=== PATIENT | male | born 1940 | race Caucasian/White ===

== ENCOUNTER 2016-04-16 11:05 | Inpatient (IN) | payer MEDICARE ==
[2016-04-16] MEDS ORDERED: NS 1,000 ML IV ONE (11:31)
[2016-04-16 11:47] LABS: MPV 9.7 fL (7.4-10.4)
[2016-04-16 11:59] LABS: BLOOD UREA NITROGEN 94 MG/DL (9-20); CALCIUM 9.3 MG/DL (8.4-10.2); CALCULATED OSMOLALITY 305 MOs/Kg (270-290); CHLORIDE 110 mEq/L (98-107); GLUCOSE 248 MG/DL (70-99); SODIUM LEVEL 139 mEq/L (137-146); TOTAL PROTEIN 5.9 G/DL (6.3-8.2)
--- NOTE | 2016-04-16 12:01 | EDPRACDOC ---
- General Information Chief Complaint: Generalized Weakness Stated Complaint: NOSE BLEED/ DIZZY Time Seen by Provider: 04/16/16 11:25 Information Source: Patient Mode Of Arrival: Car Home Medications: Home Medications Pravastatin Sodium 80 mg PO HS 04/29/13 Alprazolam 0.5 mg PO TID 05/16/15 Glipizide 5 mg PO BID 05/16/15 Insulin Regular, Human [Humulin R] 12 unit SQ BID 05/16/15 Lisinopril 40 mg PO HS 05/16/15 MetFORMIN (Immediate Release) [GLUCOPHAGE Immed Release] 1,000 mg PO BID Sertraline HCl [Zoloft] 100 mg PO DAILY 04/16/16 Allergies/Adverse Reactions: Allergies Allergy/AdvReac Type Severity Reaction Status Date / Time No Known Allergies Allergy Verified 05/16/15 16:35 - History of Present Illness Onset: 2 days Exact Onset of Symptoms: Unknown HPI: PT HAS BEEN SOB FOR THE PAST FEW DAYS. PT SAID THAT HE HAS HAD NOSEBLEEDS AND A BRUISING. PT SAID THAT HE HAS BEEN FEELING THAT HE'S GOING TO PASS OUT. HE ALSO REPORTS BLACK STOOLS. PT SAID THAT HE HAS A HX OF LOW PLT, BUT THEY'VE BEEN STABLE RECENTLY. HE IS FOLLOWED BY DR. GERARDO. Symptoms Started: Reports: Gradually Symptoms Description: Constant Weakness: Bilateral: Generalized Symptoms: Reports: Near Syncope, Weak Symptom Severity: Reports: Bedridden Associated signs and symptoms:: Reports: None ED Past Medical History - Patient Medical History Cardiac History: Reports: Hypertension, Hypercholesterolemia Psychological History: Reports: Anxiety Systemic History: Reports: Diabetes. Denies: Cancer Additional Past Medical History: CHRONIC ITP Surgical History: Reports: Hernia Surgery - Family Medical History Reports: Diabetes (GRANDFATHER), Cancer (FATHER), Cardiac Disorders (MOM). Denies: Hypertension, Stroke - Social Medical History Smoking Status: Never smoker ETOH: None Substance Abuse: None Lives In: Home EDM Review of Systems - Review of Systems ROS Negative Except as Marked: Yes All systems reviewed and were negative except as marked Constitutional: Weakness Nose: Bleeding Gastrointestinal: Melena Hematologic: Easy Bruising, Easy Bleeding, Other (LOW PLT) - Physical Exam Constitutional: Alert (Awake), Distress Oriented to: Time, Person, Place Last recorded Vital Signs: Last Vital Signs Temp 97.7 F 04/16/16 11:19 Pulse 90 04/16/16 11:51 Resp 18 04/16/16 11:51 BP 89/53 L 04/16/16 11:51 Pulse Ox 100 04/16/16 11:51 Oxygen Pulse Oxygen Saturation 100 O2 Device Room Air Oxygen Flow Rate Fraction of Inspired Oxygen ( FIO2) - HEENT Head: Normal ( normocephalic) Eye Exam: Normal (PERRL, EOMI, Sclera white) Oropharynx: Other (INTRAORAL PETECHIAE) ENT EAC: Normal TMJ: Normal Nose: No Symptoms Reported (septum midline) Neck: Normal (FROM, trachea at midline) - Respiratory/Cardiovascular Respiratory: Normal - CTA (BBS clear to auscultation without adventitious sounds ) Cardiovascular: Tachycardia - GI Auscultation: Normal (NABS) Palpation: Normal (Soft,No rebound or guarding, non distended) Tenderness: Non tender Osman's Sign: Negative - Musculoskeletal Back: Normal Extremities: Other (ECCHYMOSIS AND PETECHIAE) - Integumentary Skin: Pale Lymphatics: Normal - Neurologic Memory Impaired: Normal Motor Function: Normal (Normal tone, Pulses 2+ No cyanosis or edema, FROM) Cranial Nerve: Normal (CN II-X11 intact sensation, strength 5/5) Cerebellar: Normal Mood Description: Normal Thought: Coherent Perception: Normal - Results 04/16/16 11:35 04/16/16 11:35 WBC 13.2 xk/uL (3.8-10.8) H 04/16/16 11:35 RBC 2.31 xM/uL (4.70-6.10) L 04/16/16 11:35 Hgb 6.6 g/dL (14.0-18.0) L* 04/16/16 11:35 Hct 19.9 % (42-52) L 04/16/16 11:35 MCV 86 fL (80-94) 04/16/16 11:35 MCH 28.7 pg (27-32) 04/16/16 11:35 MCHC 33.3 g/dl (33-36) 04/16/16 11:35 RDW 15.4 % (11.5-14.5) H 04/16/16 11:35 Plt Count < 3 xk/uL (130-400) L* 04/16/16 11:35 MPV 9.7 fL (7.4-10.4) 04/16/16 11:35 Sodium 139 mEq/L (137-146) 04/16/16 11:35 Potassium 5.2 mEq/L (3.5-5.1) H 04/16/16 11:35 Chloride 110 mEq/L (98-107) H 04/16/16 11:35 Carbon Dioxide 11 mMOL/L (22-33) L 04/16/16 11:35 Anion Gap 23 mEq/L (8-16) H 04/16/16 11:35 BUN 94 MG/DL (9-20) H 04/16/16 11:35 Creatinine 2.00 MG/DL (0.66-1.25) H 04/16/16 11:35 Estimated GFR (MDRD) 33 mL/min (>=60) L 04/16/16 11:35 Glucose 248 MG/DL (70-99) H 04/16/16 11:35 Calculated Osmolality 305 MOs/Kg (270-290) H 04/16/16 11:35 Calcium 9.3 MG/DL (8.4-10.2) 04/16/16 11:35 Corrected Calcium 10.0 MG/DL (8.4-10.2) 04/16/16 11:35 Total Bilirubin 0.5 MG/DL (0.2-1.3) 04/16/16 11:35 AST 16 IU/L (17-59) L 04/16/16 11:35 ALT 31 IU/L (21-72) 04/16/16 11:35 Alkaline Phosphatase 43 IU/L (50-160) L 04/16/16 11:35 Total Protein 5.9 G/DL (6.3-8.2) L 04/16/16 11:35 Albumin 3.3 G/DL (3.5-5.0) L 04/16/16 11:35 Crossmatch See Detail 04/16/16 11:35 Lab Results 04/16/16 04/16/16 04/16/16 11:35 11:35 11:35 WBC 13.2 H RBC 2.31 L Hgb 6.6 L* Hct 19.9 L MCV 86 MCH 28.7 MCHC 33.3 RDW 15.4 H Plt Count < 3 L* MPV 9.7 Sodium 139 Potassium 5.2 H Chloride 110 H Carbon Dioxide 11 L Anion Gap 23 H BUN 94 H Creatinine 2.00 H Estimated GFR (MDRD) 33 L Glucose 248 H Calculated Osmolality 305 H Calcium 9.3 Corrected Calcium 10.0 Total Bilirubin 0.5 AST 16 L ALT 31 Alkaline Phosphatase 43 L Total Protein 5.9 L Albumin 3.3 L Crossmatch See Detail - EKG EKG #1 EKG Time: 11:34 -: Yes EKG interpreted by me Rate: bpm: 106 [place]: Normal Rhythm: ST Block: RBBB Hypertrophy: None ST: Normal Comparison: 06/03/13 - Diagnostic Imaging Chest Image interpreted by: Radiologist There is no active cardiopulmonary disease. - Additional Information PT D/W DR. GERARDO REGARDING THE CBC ABN. HE REC IVIG 1 G/KG FOR 2 DAYS. 40 MG DECADRON IV DAILY FOR 4 DAYS. 2 UNITS OF PLT. ED Critical Care Note - Critical Care Note Total Time (mins): 30 - Departure Yes I personally saw and evaluated the patient. Disposition: Admit IP To This Hospital Condition: Serious Final Diagnosis: Acute upper GI bleed, Acute post-hemorrhagic anemia, Severe thrombocytopenia, ARF (acute renal failure), Dehydration, Hyperglycemia, Chronic ITP (idiopathic thrombocytopenia) Instructions: Weakness (General), Renal Failure Diet (GEN) Education/Counseling Given To: Patient, Family Member Education/Counseling Given Regarding: Diagnosis, Treatment Decision to Admit Time: 12:47 Decision to admit date: 04/16/16 Decision to admit: from ED - Physician Consulted Hospitalist Provider Called: Yvon Antonio
[2016-04-16] MEDS ORDERED: SODIUM CHLORIDE 0.9% 3 ML FLUSH FLUSH PRN (12:03)
[2016-04-16 12:04] LABS: PARTIAL THROMB. TIME 18.8 SEC (22-35); PT-INR 1.1
[2016-04-16] MEDS ORDERED: DEXAMETHASONE PF 10 MG/1 ML VIAL IV ONE (12:20)
[2016-04-16 12:27] LABS: SEG NEUTROPHIL 65 % (45-76); TOTAL CELL COUNT 100
--- NOTE | 2016-04-16 12:27 | DIRPT ---
CLINICAL DATA: Nosebleed, dizziness, multiple falls; history of hypertension and thrombus cytopenia. EXAM: PORTABLE CHEST 1 VIEW COMPARISON: None in PACs FINDINGS: The lungs are adequately inflated and clear. The heart and pulmonary vascularity are normal. The mediastinum is normal in width. The trachea is midline. There is no pleural effusion or pneumothorax. The observed portions of the bony thorax are unremarkable. IMPRESSION: There is no active cardiopulmonary disease. Electronically Signed By: Drew Martinez M.D. On: 04/16/2016 12:25
[2016-04-16] MEDS ORDERED: PANTOPRAZOLE 40 MG VIAL IV ONE (12:45)
[2016-04-16] MEDS ORDERED: DEXAMETHASONE PF 10 MG/1 ML VIAL ONE (12:49)
[2016-04-16] MEDS ORDERED: IMMUNE GLOBULIN GAMMA IV SCH (13:00)
[2016-04-16] MEDS ORDERED: DEXTROSE 25 GM/50 ML PFS IV PRN ×2 (13:47→19:31)
[2016-04-16] MEDS ORDERED: PROMETHAZINE 25 MG/ML VIAL IV PRN (13:47)
[2016-04-16] MEDS ORDERED: GLUCAGON 1 MG VIAL SQ PRN ×2 (13:47→19:31)
[2016-04-16] MEDS ORDERED: GUAIFENESIN 200 MG/10 ML UDC PO PRN (13:47)
[2016-04-16] MEDS ORDERED: ONDANSETRON HCL 4 MG/2 ML VIAL IV PRN (13:47)
[2016-04-16] MEDS ORDERED: Docusate Sodium 100 MG CAP PO PRN (13:47)
[2016-04-16] MEDS ORDERED: ACETAMINOPHEN 325 MG/TAB TABLET PO PRN (13:47)
[2016-04-16] MEDS ORDERED: MAGNESIUM HYDROXIDE 30 ML BOTTLE PO PRN (13:47)
[2016-04-16] MEDS ORDERED: GLUCOSE (ORAL GEL) 15 GM TUBE PO PRN ×2 (13:47→19:31)
[2016-04-16] MEDS ORDERED: BENZONATATE 100 MG PERLES PO PRN (13:47)
--- NOTE | 2016-04-16 13:47 | HISTPHYS ---
- Chief Complaint weakness, gi bleeding, severe thrombocytopenia - History of Present Illness Mr. Leroy is a 75-year-old white male with a history of ITP who presents to the emergency room with complaint of severe weakness, GI bleeding, and near- syncope. In the emergency room he was found to be severely thrombocytopenic with a platelet count of less than 3. He was also severely anemic with a hemoglobin of 6.8. He complains of dizziness and lightheadedness. I discussed his case with Dr. Brown with Hematology-Oncology. We have gone ahead and started him on IVIG and high-dose IV Decadron. We will transfuse him packed red blood cells and platelets. He will be admitted to the intensive care unit for further evaluation and management. - Medical History Cardiac History: Reports: Hypertension, Hypercholesterolemia Respiratory History: Reports: No Significant History GI/ History: Reports: No Significant History Systemic History: Reports: Diabetes, Other (ITP). Denies: Cancer Neurological History: Reports: No Significant History Psychological History: Reports: Anxiety - Surgical History Reports: Hernia Surgery - Medictions/Allergies Allergies No Known Allergies Allergy (Verified 05/16/15 16:35) Current Medication List: Reviewed Home Medications Pravastatin Sodium 80 mg PO HS 04/29/13 Alprazolam 0.5 mg PO TID 05/16/15 Glipizide 5 mg PO BID 05/16/15 Insulin Regular, Human [Humulin R] 12 unit SQ BID 05/16/15 Lisinopril 40 mg PO HS 05/16/15 MetFORMIN (Immediate Release) [GLUCOPHAGE Immed Release] 1,000 mg PO BID Sertraline HCl [Zoloft] 100 mg PO DAILY 04/16/16 - Family History Reports: Diabetes (GRANDFATHER), Cancer (FATHER), Cardiac Disorders (MOM). Denies: Hypertension, Stroke - Social History Lives: With Family Smoking Status: Never smoker Social History: Denies: Alcohol Use - Review of Systems Yes All systems reviewed and were negative except as marked Constitutional: Fatigue, Loss of Appetite, Weakness. negative: Chills, Fever - Eyes No Symptoms Reported. negative: Blurred Vision, Double Vision, Pain, Photophobia - Ears No Symptoms Reported. negative: Drainage, Hearing Loss, Pain - Nose Bleeding. negative: Abrasion - Mouth Mouth: No Symptoms Reported. negative: Pain, Drooling, Denture - Throat/Neck No Symptoms Reported. negative: Pain, Masses, Hoarseness, Snoring - Respiratory Shortness of Breath. negative: Cough, Wheezing, Sputum - Cardiovascular negative: Chest Pain, Orthopnea, Palpitations - Gastrointestinal Gastrointestinal: Nausea, Diarrhea, Hematochezia - Genitourinary Genitourinary: No Symptoms Reported. negative: Bleeding, Dysuria, Discharge, Frequency - Neurological Dizziness, Weakness. negative: Headache, Seizure, Speech Difficulty - Musculoskeletal Musculoskeletal:: No Symptoms Reported. negative: Stiffness, Gout, Weakness - Integumentary Bruising - Allergic/Immunologic No Symptoms Reported - Hematologic Easy Bruising, Easy Bleeding, Anemia. negative: Past Transfusion Reaction - Endocrine No Symptoms Reported. negative: Weight Gain, Weight Loss, Excessive Thirst, Excessive Sweating, Heat Intolerance, Cold Intolerance - Psychiatric Anxiety - Physical Exam Constitutional: Alert (Awake), Distress. negative: Well appearing (Acutely ill- appearing) Oriented to: Time, Person, Place Exam: Last Vital Signs Temp 98.1 F 04/16/16 13:38 Pulse 88 04/16/16 13:38 Resp 20 04/16/16 13:38 BP 101/56 L 04/16/16 13:38 Pulse Ox 100 04/16/16 13:38 Intake & Output 04/15/16 04/16/16 04/16/16 23:59 07:59 15:59 Intake Total 0 Balance 0 Patient's weight 90.718 kg - HEENT Head: Normal ( normocephalic) Eye: Normal (PERRL, EOMI, Sclera white) Oropharynx: Other (INTRAORAL PETECHIAE) ENT EAC: Normal TMJ: Normal Nose: No Symptoms Reported (septum midline) - Respiratory/Cardiovascular Respiratory: Normal - CTA (BBS clear to auscultation without adventitious sounds ). negative: Rales, Rhonchi, Wheezes Cardiovascular: Tachycardia - GI Auscultation: Normal (NABS) Palpation: Normal (Soft,No rebound or guarding, non distended) Tenderness: Non tender Rectal Exam: Heme positive stool - Musculoskeletal Back: Ecchymosis Extremities: Other (ECCHYMOSIS AND PETECHIAE). negative: Calf Tenderness, Edema , Pedal Edema - Integumentary Skin: Warm, Dry, Pale, Petechiae, Other (Multiple ecchymoses) Lymphatics: Normal. negative: Adenopathy - Neurologic Memory Impaired: Normal Motor Function: Normal Cranial Nerve: Normal Cerebellar: Normal Mood Description: Normal Thought: Coherent Perception: Normal - Focused CV Perfusion Exam Vital Signs: Last Vital Signs Temp 98.1 F 04/16/16 13:38 Pulse 88 04/16/16 13:38 Resp 20 04/16/16 13:38 BP 101/56 L 04/16/16 13:38 Pulse Ox 100 04/16/16 13:38 - Lab Results Laboratory Results - last 24 hr 04/16/16 04/16/16 04/16/16 11:35 11:35 11:35 WBC 13.2 H RBC 2.31 L Hgb 6.6 L* Hct 19.9 L MCV 86 MCH 28.7 MCHC 33.3 RDW 15.4 H Plt Count < 3 L* MPV 9.7 Neut % (Auto) Cancelled Lymph % (Auto) Cancelled [place] % (Auto) Cancelled Eos % (Auto) Cancelled Baso % (Auto) Cancelled Absolute Neuts (auto) Cancelled Absolute Lymphs (auto) Cancelled Seg Neuts % (Manual) 65 Band Neutrophils % 2 Lymphocytes % (Manual) 28 Monocytes % (Manual) 3 Eosinophils % (Manual) 2 Absolute Neutrophils 8.84 H Absolute Lymphocytes 3.70 Vacuolated Neuts 1+ Atypical Lymphocytes Mod amt Platelet Estimate Dec RBC Morphology 1+ sphero PT INR APTT Sodium 139 Potassium 5.2 H Chloride 110 H Carbon Dioxide 11 L Anion Gap 23 H BUN 94 H Creatinine 2.00 H Estimated GFR (MDRD) 33 L Glucose 248 H Calculated Osmolality 305 H Calcium 9.3 Corrected Calcium 10.0 Total Bilirubin 0.5 AST 16 L ALT 31 Alkaline Phosphatase 43 L Troponin I < 0.01 Total Protein 5.9 L Albumin 3.3 L Blood Type A NEGATIVE Antibody Screen Negative Crossmatch See Detail 04/16/16 11:35 WBC RBC Hgb Hct MCV MCH MCHC RDW Plt Count MPV Neut % (Auto) Lymph % (Auto) [place] % (Auto) Eos % (Auto) Baso % (Auto) Absolute Neuts (auto) Absolute Lymphs (auto) Seg Neuts % (Manual) Band Neutrophils % Lymphocytes % (Manual) Monocytes % (Manual) Eosinophils % (Manual) Absolute Neutrophils Absolute Lymphocytes Vacuolated Neuts Atypical Lymphocytes Platelet Estimate RBC Morphology PT 10.8 INR 1.1 APTT 18.8 L Sodium Potassium Chloride Carbon Dioxide Anion Gap BUN Creatinine Estimated GFR (MDRD) Glucose Calculated Osmolality Calcium Corrected Calcium Total Bilirubin AST ALT Alkaline Phosphatase Troponin I Total Protein Albumin Blood Type Antibody Screen Crossmatch - Assessment (1) Acute post-hemorrhagic anemia D62 - ACUTE POSTHEMORRHAGIC ANEMIA Acute Present on Admission: Yes Severe. Admit ICU. This appears to be due to GI bleeding from severe thrombocytopenia and ITP. IV steroids, IVIG, transfuse platelets and packed red blood cells. Also place on IV Protonix. Continue to monitor H&H and transfuse as needed. (2) Chronic ITP (idiopathic thrombocytopenia) D69.3 - IMMUNE THROMBOCYTOPENIC PURPURA Acute Present on Admission: Yes Acutely worse with severe thrombocytopenia and a platelet count of less than 3. Starting IVIG, IV steroids, and transfusing platelets and packed red blood cells. Dr. Brown to see in consultation (3) ARF (acute renal failure) N17.9 - ACUTE KIDNEY FAILURE, UNSPECIFIED Acute Present on Admission: Yes Qualifiers: Acute renal failure type: unspecified Qualified Code(s): N17.9 - Acute kidney failure, unspecified IV fluids, transfusion, monitor closely and dose adjust medications. (4) Severe thrombocytopenia D69.6 - THROMBOCYTOPENIA, UNSPECIFIED Acute Present on Admission: Yes As above under ITP (5) GI bleed K92.2 - GASTROINTESTINAL HEMORRHAGE, UNSPECIFIED Acute Present on Admission: Yes Qualifiers: GI bleed type/associated pathology: anorectal hemorrhage Qualified Code(s) : K62.5 - Hemorrhage of anus and rectum Due to severe thrombocytopenia. Transfuse. Correct ITP and monitor (6) Dehydration E86.0 - DEHYDRATION Acute Present on Admission: Yes IV fluids and monitor (7) Hyperglycemia R73.9 - HYPERGLYCEMIA, UNSPECIFIED Acute Present on Admission: Yes Accu-Cheks and sliding scale insulin Case Care Discussed with: Patient, Consultants, Family, Nursing Staff, Resource Management, Cut Off Sawyer Total Time: 1 hour 30 minutes Critical Care: Yes
[2016-04-16] MEDS ORDERED: Vaccine Screening Complete SCH (16:00)
[2016-04-16] MEDS ORDERED: IMMUNE GLOBULIN GAMMA IV ONE (17:00)
[2016-04-16] MEDS: ALPRAZOLAM 0.5 MG TAB PO SCH ×2 (17:02→21:03)
[2016-04-16] MEDS: REGULAR INSULIN 100 UNITS/ML - 3 ML VIAL SQ SCH ×4 (17:03→21:05)
[2016-04-16] MEDS: NS 1,000 ML IV SCH (17:03)
[2016-04-16] MEDS: SODIUM CHLORIDE 0.9% 3 ML FLUSH FLUSH SCH (17:15)
[2016-04-16] MEDS ORDERED: REGULAR INSULIN 100 UNITS/ML - 3 ML VIAL IV ONE (19:33)
[2016-04-16] MEDS ORDERED: REGULAR INSULIN 100 UNITS/ML - 3 ML VIAL SQ ONE (20:10)
[2016-04-16 20:37] LABS: LEUKOCYTES/URINE NEG (NEGATIVE); NITRITE/URINE NEG (NEGATIVE); RBC/URINE 20-30 (0-2); URINE OCCULT BLOOD 3+ (NEG/TRACE)
[2016-04-16] MEDS: CHLORHEXIDINE (HIBICLENS) 4 OZ BOTTLE TOP SCH (21:57)
[2016-04-16] MEDS: ZOLPIDEM TARTRATE 5 MG TAB PO PRN (22:44)
[2016-04-17] MEDS: NS 1,000 ML IV SCH ×4 (00:45→17:10)
[2016-04-17 06:05] LABS: AUTOMATED BASOPHIL 0.3 % (0-2)
[2016-04-17 06:06] LABS: AUTOMATED LYMPH 18.5 % (17-44); AUTOMATED MONOCYTE 6.4 % (3-10); AUTOMATED NEUTROPHIL 74.8 % (45-76)
[2016-04-17] MEDS: SODIUM CHLORIDE 0.9% 3 ML FLUSH FLUSH SCH ×2 (06:20→17:14)
[2016-04-17] MEDS: REGULAR INSULIN 100 UNITS/ML - 3 ML VIAL SQ SCH ×6 (06:20→21:11)
[2016-04-17] MEDS: ALPRAZOLAM 0.5 MG TAB PO SCH ×3 (06:20→20:44)
[2016-04-17 06:45] LABS: BLOOD UREA NITROGEN 75 MG/DL (9-20); CALCIUM 8.9 MG/DL (8.4-10.2); CALCULATED OSMOLALITY 298 MOs/Kg (270-290); CHLORIDE 117 mEq/L (98-107); GLUCOSE 123 MG/DL (70-99); SODIUM LEVEL 143 mEq/L (137-146)
[2016-04-17] MEDS: SERTRALINE HCL 100 MG TAB PO SCH (07:50)
--- NOTE | 2016-04-17 08:36 | GENMEDPROG ---
Chief Complaint: No improvement in platelets or hemoglobin despite transfusions. Still feels weak, dizzy and lightheaded. Says rectal bleeding has improved. Denies pain currently. Notes Reviewed: Yes Events from last night noted and discussed with Clinical Staff Current Medication List: Reviewed Currently: Reports: SOB. Denies: Cough, Wheezing, MORRIS, Nausea and Vomiting, Chest Pain DVT Prophylaxis: No (Patient has severe thrombocytopenia is actively bleeding with significant peripheral ecchymoses. Do not feel he is safe for SCDs or chemo prophylaxis) - Physical Examination Vital Signs and I&O: Last Vital Signs Temp 98.4 F 04/17/16 08:04 Pulse 91 04/17/16 08:04 Resp 18 04/17/16 08:04 BP 110/63 04/17/16 08:04 Pulse Ox 100 04/17/16 08:04 Oxygen Pulse Oxygen Saturation 100 O2 Device Room Air Oxygen Flow Rate Fraction of Inspired Oxygen ( FIO2) Intake & Output 04/14/16 04/15/16 04/16/16 04/17/16 23:59 23:59 23:59 23:59 Intake Total 3654 2123 Output Total 1650 500 Balance 2004 1623 Patient's weight 88.621 kg General: Alert, Oriented x3, Cooperative, Mild distress. negative: Well appearing (Acutely ill-appearing) HEENT: Normal, PERRLA, EOMI Neck: Non-tender, Full range of motion, Normal Trachea alignment, Normal inspection. negative: JVD Lymphatics: Normal. negative: Adenopathy Respiratory: Normal - CTA (BBS clear to auscultation without adventitious sounds ). negative: Rales, Rhonchi, Wheezes Cardiovascular: Regular rate and rhythm, No Gallops,Rubs/Murmurs GI: Normal bowel sounds, Soft, Non tender, No hepatospenomegaly Extremities/Musculoskeletal: Normal pulses. negative: Tenderness, Swelling, Edema Skin: Ecchymosis Present Neurological: Normal speech, Strength at 5/5 X4 ext, Normal tone, Cranial nerves 3-12 NL Psych/Mental Status: Appropriate, Normal Affect, Cooperative, Anxious Lab/DI/Studies Reviewed: Laboratory Results - last 24 hr 04/16/16 04/16/16 04/16/16 11:35 11:35 11:35 WBC 13.2 H RBC 2.31 L Hgb 6.6 L* Hct 19.9 L MCV 86 MCH 28.7 MCHC 33.3 RDW 15.4 H Plt Count < 3 L* MPV 9.7 Neut % (Auto) Cancelled Lymph % (Auto) Cancelled [place] % (Auto) Cancelled Eos % (Auto) Cancelled Baso % (Auto) Cancelled Absolute Neuts (auto) Cancelled Absolute Lymphs (auto) Cancelled Seg Neuts % (Manual) 65 Band Neutrophils % 2 Lymphocytes % (Manual) 28 Monocytes % (Manual) 3 Eosinophils % (Manual) 2 Absolute Neutrophils 8.84 H Absolute Lymphocytes 3.70 Vacuolated Neuts 1+ Atypical Lymphocytes Mod amt Platelet Estimate Dec RBC Morphology 1+ sphero PT INR APTT Sodium 139 Potassium 5.2 H Chloride 110 H Carbon Dioxide 11 L Anion Gap 23 H BUN 94 H Creatinine 2.00 H Estimated GFR (MDRD) 33 L Glucose 248 H POC Capillary Glucose Calculated Osmolality 305 H Calcium 9.3 Corrected Calcium 10.0 Total Bilirubin 0.5 AST 16 L ALT 31 Alkaline Phosphatase 43 L Troponin I < 0.01 Total Protein 5.9 L Albumin 3.3 L Urine Color Urine Clarity Urine pH Ur Specific [place] Urine Protein Urine Glucose (UA) Urine Ketones Urine Occult Blood Urine Nitrite Urine Bilirubin Urine Urobilinogen Ur Leukocyte Esterase Urine RBC Urine WBC Ur Epithelial Cells Urine Bacteria Hyaline Casts Urine Mucus Blood Type A NEGATIVE Antibody Screen Negative Crossmatch See Detail 04/16/16 04/16/16 04/16/16 11:35 14:31 16:55 WBC RBC Hgb Hct MCV MCH MCHC RDW Plt Count MPV Neut % (Auto) Lymph % (Auto) [place] % (Auto) Eos % (Auto) Baso % (Auto) Absolute Neuts (auto) Absolute Lymphs (auto) Seg Neuts % (Manual) Band Neutrophils % Lymphocytes % (Manual) Monocytes % (Manual) Eosinophils % (Manual) Absolute Neutrophils Absolute Lymphocytes Vacuolated Neuts Atypical Lymphocytes Platelet Estimate RBC Morphology PT 10.8 INR 1.1 APTT 18.8 L Sodium Potassium Chloride Carbon Dioxide Anion Gap BUN Creatinine Estimated GFR (MDRD) Glucose POC Capillary Glucose 405 H* Calculated Osmolality Calcium Corrected Calcium Total Bilirubin AST ALT Alkaline Phosphatase Troponin I < 0.01 Total Protein Albumin Urine Color Urine Clarity Urine pH Ur Specific [place] Urine Protein Urine Glucose (UA) Urine Ketones Urine Occult Blood Urine Nitrite Urine Bilirubin Urine Urobilinogen Ur Leukocyte Esterase Urine RBC Urine WBC Ur Epithelial Cells Urine Bacteria Hyaline Casts Urine Mucus Blood Type Antibody Screen Crossmatch 04/16/16 04/16/16 04/16/16 17:50 19:19 20:22 WBC RBC Hgb Hct MCV MCH MCHC RDW Plt Count MPV Neut % (Auto) Lymph % (Auto) [place] % (Auto) Eos % (Auto) Baso % (Auto) Absolute Neuts (auto) Absolute Lymphs (auto) Seg Neuts % (Manual) Band Neutrophils % Lymphocytes % (Manual) Monocytes % (Manual) Eosinophils % (Manual) Absolute Neutrophils Absolute Lymphocytes Vacuolated Neuts Atypical Lymphocytes Platelet Estimate RBC Morphology PT INR APTT Sodium Potassium Chloride Carbon Dioxide Anion Gap BUN Creatinine Estimated GFR (MDRD) Glucose POC Capillary Glucose 409 H* Calculated Osmolality Calcium Corrected Calcium Total Bilirubin AST ALT Alkaline Phosphatase Troponin I 0.04 Total Protein Albumin Urine Color Yellow Urine Clarity Clear Urine pH 5.0 Ur Specific [place] 1.005 Urine Protein Neg Urine Glucose (UA) 3+ Urine Ketones Neg Urine Occult Blood 3+ H Urine Nitrite Neg Urine Bilirubin Neg Urine Urobilinogen <2.0 Ur Leukocyte Esterase Neg Urine RBC 20-30 H Urine WBC 2-5 H Ur Epithelial Cells Occ Urine Bacteria Few Hyaline Casts 0-2 Urine Mucus Occ Blood Type Antibody Screen Crossmatch 04/16/16 04/17/16 04/17/16 21:04 05:17 05:25 WBC RBC Hgb Hct MCV MCH MCHC RDW Plt Count MPV Neut % (Auto) Lymph % (Auto) [place] % (Auto) Eos % (Auto) Baso % (Auto) Absolute Neuts (auto) Absolute Lymphs (auto) Seg Neuts % (Manual) Band Neutrophils % Lymphocytes % (Manual) Monocytes % (Manual) Eosinophils % (Manual) Absolute Neutrophils Absolute Lymphocytes Vacuolated Neuts Atypical Lymphocytes Platelet Estimate RBC Morphology PT INR APTT Sodium 143 Potassium 5.7 H Chloride 117 H Carbon Dioxide 19 L Anion Gap 13 BUN 75 H Creatinine 1.50 H Estimated GFR (MDRD) 46 L Glucose 123 H POC Capillary Glucose 388 H 124 H Calculated Osmolality 298 H Calcium 8.9 Corrected Calcium Total Bilirubin AST ALT Alkaline Phosphatase Troponin I Total Protein Albumin Urine Color Urine Clarity Urine pH Ur Specific [place] Urine Protein Urine Glucose (UA) Urine Ketones Urine Occult Blood Urine Nitrite Urine Bilirubin Urine Urobilinogen Ur Leukocyte Esterase Urine RBC Urine WBC Ur Epithelial Cells Urine Bacteria Hyaline Casts Urine Mucus Blood Type Antibody Screen Crossmatch 04/17/16 05:25 WBC 16.3 H RBC 2.09 L Hgb 6.2 L* Hct 18.6 L MCV 89 MCH 29.6 MCHC 33.3 RDW 16.0 H Plt Count < 3 L* MPV 12.0 H Neut % (Auto) 74.8 Lymph % (Auto) 18.5 [place] % (Auto) 6.4 Eos % (Auto) 0.0 Baso % (Auto) 0.3 Absolute Neuts (auto) 12.06 H Absolute Lymphs (auto) 2.93 Seg Neuts % (Manual) Band Neutrophils % Lymphocytes % (Manual) Monocytes % (Manual) Eosinophils % (Manual) Absolute Neutrophils Absolute Lymphocytes Vacuolated Neuts Atypical Lymphocytes Platelet Estimate Dec RBC Morphology 1+ hypo PT INR APTT Sodium Potassium Chloride Carbon Dioxide Anion Gap BUN Creatinine Estimated GFR (MDRD) Glucose POC Capillary Glucose Calculated Osmolality Calcium Corrected Calcium Total Bilirubin AST ALT Alkaline Phosphatase Troponin I Total Protein Albumin Urine Color Urine Clarity Urine pH Ur Specific [place] Urine Protein Urine Glucose (UA) Urine Ketones Urine Occult Blood Urine Nitrite Urine Bilirubin Urine Urobilinogen Ur Leukocyte Esterase Urine RBC Urine WBC Ur Epithelial Cells Urine Bacteria Hyaline Casts Urine Mucus Blood Type Antibody Screen Crossmatch - Assessment (1) Acute post-hemorrhagic anemia Acute D62 - ACUTE POSTHEMORRHAGIC ANEMIA Comment/Plan: No improvement despite transfusions, IV steroids, IVIG. Questionable underlying hemolysis. Continue steroids, IVIG. Transfuse again. Dr. Brown to see in consultation. Remains acutely and critically ill (2) Chronic ITP (idiopathic thrombocytopenia) Acute D69.3 - IMMUNE THROMBOCYTOPENIC PURPURA Comment/Plan: Not improving despite aggressive care. Continue IV steroids, IVIG. Transfuse platelets and packed red blood cells again. Dr. Brown to follow (3) ARF (acute renal failure) Acute N17.9 - ACUTE KIDNEY FAILURE, UNSPECIFIED Qualifiers: Acute renal failure type: unspecified Qualified Code(s): N17.9 - Acute kidney failure, unspecified Comment/Plan: Slightly better today. Continue IV fluids. (4) Severe thrombocytopenia Acute D69.6 - THROMBOCYTOPENIA, UNSPECIFIED Comment/Plan: As above under ITP (5) GI bleed Acute K92.2 - GASTROINTESTINAL HEMORRHAGE, UNSPECIFIED Qualifiers: GI bleed type/associated pathology: anorectal hemorrhage Qualified Code(s) : K62.5 - Hemorrhage of anus and rectum Comment/Plan: Denies any GI bleeding this morning (6) Dehydration Acute E86.0 - DEHYDRATION Comment/Plan: IV fluids and monitor (7) Hyperglycemia Acute R73.9 - HYPERGLYCEMIA, UNSPECIFIED Comment/Plan: Accu-Cheks and sliding scale insulin Case Care Discussed with: Patient, Consultants, Nursing Staff, Resource Management, Other (blood bank) Total Time: 1 hour Critical Care: Yes
[2016-04-17] MEDS ORDERED: DEXAMETHASONE PF 10 MG/1 ML VIAL IV SCH (09:00)
[2016-04-17] MEDS: DEXAMETHASONE IV SCH (09:53)
[2016-04-17] MEDS: NS IV SCH (09:53)
[2016-04-17] MEDS: PANTOPRAZOLE 40 MG VIAL IV SCH ×2 (11:59→20:44)
[2016-04-17] MEDS ORDERED: IMMUNE GLOBULIN GAMMA IV SCH (14:00)
[2016-04-17 15:07] LABS: FOLATES 13.4 ng/mL (>2.76)
[2016-04-17] MEDS ORDERED: IMMUNE GLOBULIN GAMMA IV ONE (16:00)
[2016-04-17 22:24] LABS: AUTOMATED BASOPHIL 0.1 % (0-2); AUTOMATED LYMPH 20.2 % (17-44); AUTOMATED MONOCYTE 4.4 % (3-10); AUTOMATED NEUTROPHIL 75.3 % (45-76); MPV 10.3 fL (7.4-10.4)
--- NOTE | 2016-04-17 23:16 | PMOCONSULT ---
Date of Service:: 04/17/16 Medical Oncology Consultation: HISTORY OF PRESENT ILLNESS: The patient is a 75-year-old gentleman who I follow for chronic ITP. For nearly the past 6 years, this gentleman's platelet count has hovered between 30-68327. As he has been completely asymptomatic, his ITP has been followed without any particular intervention. Unfortunately, the patient came into the emergency room yesterday complaining of extreme weakness and dizziness. According to the patient, he could barely stand up or even walk a few feet before becoming extremely lightheaded. The patient claims he has had dark, black stools over the past few days. He claims he began taking aspirin approximately 2 weeks ago as he felt it would be an ideal thing to do for good heart health. The patient denies ever having any dark stools or other overt forms of blood loss before his aspirin was started. While in the emergency room, routine lab work showed a low hemoglobin of 6.2 and a low platelet count of only 3000. Based upon the severity of his low blood counts, the patient was immediately transferred to the ICU for the necessary blood products. The patient denies being placed on any new medications recently. He also denies having problems with recent fevers, drenching night sweats, or unexplained weight loss. Of note, when I first saw this gentleman in August 2008, he had a platelet count as low as 6000. At that time, he was given IVIG, prednisone, and a plateletpheresis, which led to a brisk normalization of his platelet count. When rechecked a few days later, these interventions led to his platelet count rising to 178,000. Over these past years, although his platelet count has fallen, it never fell to a severely low level as it was upon admission yesterday. PAST MEDICAL HISTORY: Diabetes, hypercholesterolemia PAST SURGICAL HISTORY: Hernia surgery CURRENT MEDICATIONS: Home Medication List MetFORMIN (Immediate Release) GLUCOPHAGE Immed Release 1,000 mg PO BID 04/16/16 History Sertraline HCl Zoloft 100 mg PO DAILY 04/16/16 History ALLERGIES: He has no known drug allergies FAMILY HISTORY: His mother from congestive heart failure. His father from lung cancer. He does have a daughter who also has ITP. SOCIAL HISTORY: The patient was born and raised in [facility] [address]. He has been for nearly 60 years. There is a history of remote alcohol and tobacco use. REVIEW OF SYSTEMS: PHARMACOLOGY TEACHER: The patient denies headaches, changes in hearing, vision, balance or coordination. PULMONARY: The patient has had intermittent hemoptysis over the past few days. CARDIAC: The patient denies angina, heart palpitations, or heart failure issues. GI: The patient denies nausea, vomiting, diarrhea, constipation, or weight loss , but has had recent hematochezia. : The patient denies hematuria, dysuria, or increased urinary frequency. MUSCULOSKELETAL: The patient denies arthralgias, myalgias, or joint effusions. ENDOCRINE: The patient has diabetes, but denies hypercholesterolemia, thyroid, or pituitary gland disorders. PSYCHIATRIC: The patient denies depression, anxiety, or other mood disorders. DERMATOLOGIC: The patient has noticed extensive bruising over his extremities over these past few days. CONSTITUTION: The patient denies fevers, night sweats, but has had a significantly decreased energy level. PHYSICAL EXAMINATION: Vital signs include a temperature 98.4, pulse 93, respirations 18, blood pressure 104/60, O2 sats 100% on room air GENERAL: The patient is alert and oriented x3, in no acute distress. HEENT EXAM: He does have numerous areas of purpura on his hard and soft palate LUNG EXAM: Clear to auscultation bilaterally. CARDIAC EXAM: Regular rate and rhythm. No murmurs, rubs, or gallops. ABDOMINAL EXAM: Soft, nontender and nondistended; no hepatosplenomegaly. EXTREMITY EXAM: No clubbing, cyanosis, or edema. LYMPH NODE SURVEY: No palpable cervical, supraclavicular, axillary, or inguinal lymphadenopathy. NEUROLOGIC EXAM: Cranial nerves II-XII and cerebellar functions are grossly intact. SKIN EXAM: Petechiae are notice over his face knees and lower legs. He also has areas of ecchymoses over his arms, neck and legs. LABORATORY DATA: Laboratory Tests 04/16/16 04/16/16 04/16/16 11:35 11:35 11:35 WBC Hgb Hct MCV Plt Count Lactate Dehydrogenase 471 Vitamin B12 208 L Serum Folate 13.40 Antibody Screen Negative KORY, Poly Interpret Negative 04/17/16 05:25 WBC 16.3 H Hgb 6.2 L* Hct 18.6 L MCV 89 Plt Count < 3 L* Lactate Dehydrogenase Vitamin B12 Serum Folate Antibody Screen KORY, Poly Interpret Inspection of his peripheral smear showed a clear paucity of platelets. In fact , no platelets were appreciated. He did have hypochromic red blood cells. I did not appreciate any schistocytes, polychromasia, or spherocytes to suggest some type of hemolytic process is taking place. ASSESSMENT AND PLAN: A 75-year-old gentleman who has severe ITP. Since his admission, the patient has been receiving IVIG 1 gram/kilogram body weight, which he will get for 2 consecutive days. He will also receive a 2-unit platelet pheresis each day if he has significant bleeding or his platelet count is less than 20,000. I will also give him Decadron 40 mg IV daily for the next 4 days. The patient understands his IVIG and Decadron are designed to hinder his immune system from attacking and destroying his own platelets. If these interventions do not work over the next few days, Rituxan may also need to be considered for his refractory ITP. Ultimately, this gentleman may need a splenectomy in the near future, but only after his acute hematologic issues have resolved. With respect to his severe anemia, it does appear he has some form of upper GI blood loss. As mentioned previously, he claims to have started taking aspirin 2 weeks ago. There is a chance his aspirin may have caused a bleeding ulcer in his upper GI tract for which an EGD will likely be needed. As his LDH is normal and his direct Lora testing came back negative, it makes it highly unlikely his anemia has been due to an underlying hemolytic process. Ley syndrome, which involves both autoimmune hemolytic anemia and ITP, does not appear to be present. Also, I do not appreciate promyelocytes in his peripheral smear to suggest acute promyelocytic leukemia is behind his sudden anemia and thrombocytopenia. I will follow this gentleman's peripheral counts closely while he is hospitalized. The patient understands the seriousness of his severe cytopenias, particularly with respect to his thrombocytopenia and its potential to cause sudden, profuse internal bleeding. The patient understands all the plans discussed at the bedside this afternoon and is in agreement with them.
[2016-04-18] MEDS: CHLORHEXIDINE (HIBICLENS) 4 OZ BOTTLE TOP SCH ×2 (00:47→23:45)
[2016-04-18] MEDS: NS 1,000 ML IV SCH ×2 (01:35→14:14)
[2016-04-18] MEDS ORDERED: MORPHINE 2 MG/ML INJECTION NEB PRN (03:09)
[2016-04-18] MEDS: ALPRAZOLAM 0.5 MG TAB PO SCH ×3 (05:29→20:43)
[2016-04-18] MEDS: SODIUM CHLORIDE 0.9% 3 ML FLUSH FLUSH SCH ×2 (05:30→17:47)
[2016-04-18] MEDS: REGULAR INSULIN 100 UNITS/ML - 3 ML VIAL SQ SCH ×6 (05:35→20:41)
[2016-04-18] MEDS: SERTRALINE HCL 100 MG TAB PO SCH (08:11)
[2016-04-18] MEDS: DEXAMETHASONE IV SCH (09:12)
[2016-04-18] MEDS: NS IV SCH (09:12)
[2016-04-18 10:39] LABS: MPV 10.6 fL (7.4-10.4)
[2016-04-18 10:52] LABS: BLOOD UREA NITROGEN 65 MG/DL (9-20); CALCIUM 8.3 MG/DL (8.4-10.2); CALCULATED OSMOLALITY 292 MOs/Kg (270-290); CHLORIDE 117 mEq/L (98-107); GLUCOSE 101 MG/DL (70-99); SODIUM LEVEL 142 mEq/L (137-146)
[2016-04-18 11:23] LABS: SEG NEUTROPHIL 75 % (45-76)
[2016-04-18] MEDS: PANTOPRAZOLE 40 MG VIAL IV SCH ×2 (12:01→20:42)
--- NOTE | 2016-04-18 13:04 | GENMEDPROG ---
Chief Complaint: Some improvement today. Still very weak. Denies any further GI bleeding. Platelet count has improved slightly with transfusions. Notes Reviewed: Yes Events from last night noted and discussed with Clinical Staff Current Medication List: Reviewed Currently: Reports: SOB. Denies: Cough, Wheezing, MORRIS, Nausea and Vomiting, Chest Pain DVT Prophylaxis: No (Patient has severe thrombocytopenia is actively bleeding with significant peripheral ecchymoses. Do not feel he is safe for SCDs or chemo prophylaxis) - Physical Examination Vital Signs and I&O: Last Vital Signs Temp 97.3 F L 04/18/16 11:00 Pulse 81 04/18/16 12:00 Resp 18 04/18/16 07:42 BP 109/62 04/18/16 12:00 Pulse Ox 97 04/18/16 12:00 Oxygen Pulse Oxygen Saturation 97 O2 Device Room Air Oxygen Flow Rate Fraction of Inspired Oxygen ( FIO2) Intake & Output 04/15/16 04/16/16 04/17/16 04/18/16 23:59 23:59 23:59 23:59 Intake Total 3654 6026 3356 Output Total 1650 1950 400 Balance 2004 4076 2956 Patient's weight 88.621 kg 88.621 kg 90.582 kg General: Alert, Oriented x3, Cooperative, Mild distress. negative: Well appearing (Acutely ill-appearing) HEENT: Normal, PERRLA, EOMI, Anicteric Sclera Neck: Non-tender, Full range of motion, Normal Trachea alignment, Normal inspection. negative: JVD Lymphatics: Normal. negative: Adenopathy Respiratory: Normal - CTA (BBS clear to auscultation without adventitious sounds ). negative: Rales, Rhonchi, Wheezes Cardiovascular: Regular rate and rhythm, No Gallops,Rubs/Murmurs GI: Normal bowel sounds, Soft, Non tender, No hepatospenomegaly Extremities/Musculoskeletal: Normal pulses. negative: Tenderness, Swelling, Edema Skin: Ecchymosis Present Neurological: Normal speech, Strength at 5/5 X4 ext, Normal tone, Cranial nerves 3-12 NL Psych/Mental Status: Appropriate, Normal Affect, Cooperative, Anxious Lab/DI/Studies Reviewed: Laboratory Results - last 24 hr 04/16/16 04/16/16 04/16/16 11:35 11:35 11:35 WBC RBC Hgb Hct MCV MCH MCHC RDW Plt Count MPV Neut % (Auto) Lymph % (Auto) [place] % (Auto) Eos % (Auto) Baso % (Auto) Absolute Neuts (auto) Absolute Lymphs (auto) Seg Neuts % (Manual) Band Neutrophils % Lymphocytes % (Manual) Monocytes % (Manual) Absolute Neutrophils Absolute Lymphocytes Platelet Estimate RBC Morphology Haptoglobin 51 Fibrinogen D-Dimer Quant (PE/DVT) Sodium Potassium Chloride Carbon Dioxide Anion Gap BUN Creatinine Estimated GFR (MDRD) Glucose POC Capillary Glucose Calculated Osmolality Calcium Lactate Dehydrogenase 471 Vitamin B12 Serum Folate Blood Type A NEGATIVE Antibody Screen Negative KORY, Poly Interpret Negative Crossmatch See Detail 04/16/16 04/17/16 04/17/16 11:35 16:42 21:08 WBC RBC Hgb Hct MCV MCH MCHC RDW Plt Count MPV Neut % (Auto) Lymph % (Auto) [place] % (Auto) Eos % (Auto) Baso % (Auto) Absolute Neuts (auto) Absolute Lymphs (auto) Seg Neuts % (Manual) Band Neutrophils % Lymphocytes % (Manual) Monocytes % (Manual) Absolute Neutrophils Absolute Lymphocytes Platelet Estimate RBC Morphology Haptoglobin Fibrinogen D-Dimer Quant (PE/DVT) Sodium Potassium Chloride Carbon Dioxide Anion Gap BUN Creatinine Estimated GFR (MDRD) Glucose POC Capillary Glucose 289 H 214 H Calculated Osmolality Calcium Lactate Dehydrogenase Vitamin B12 208 L Serum Folate 13.40 Blood Type Antibody Screen KORY, Poly Interpret Crossmatch 04/17/16 04/18/16 04/18/16 21:30 05:34 10:00 WBC 15.4 H RBC 2.04 L Hgb 6.3 L* Hct 18.7 L MCV 92 MCH 30.8 MCHC 33.6 RDW 15.4 H Plt Count 27 L* MPV 10.3 Neut % (Auto) 75.3 Lymph % (Auto) 20.2 [place] % (Auto) 4.4 Eos % (Auto) 0.0 Baso % (Auto) 0.1 Absolute Neuts (auto) 11.55 H Absolute Lymphs (auto) 3.08 Seg Neuts % (Manual) Band Neutrophils % Lymphocytes % (Manual) Monocytes % (Manual) Absolute Neutrophils Absolute Lymphocytes Platelet Estimate Dec RBC Morphology 2+ hypo Haptoglobin Fibrinogen D-Dimer Quant (PE/DVT) Sodium 142 Potassium 5.0 Chloride 117 H Carbon Dioxide 17 L Anion Gap 13 BUN 65 H Creatinine 1.50 H Estimated GFR (MDRD) 46 L Glucose 101 H POC Capillary Glucose 179 H Calculated Osmolality 292 H Calcium 8.3 L Lactate Dehydrogenase Vitamin B12 Serum Folate Blood Type Antibody Screen KORY, Poly Interpret Crossmatch 04/18/16 04/18/16 04/18/16 10:00 10:00 10:00 WBC 20.2 H RBC 2.72 L Hgb 8.1 L D Hct 24.1 L MCV 89 MCH 29.8 MCHC 33.7 RDW 15.9 H Plt Count 15 L* MPV 10.6 H Neut % (Auto) Cancelled Lymph % (Auto) Cancelled [place] % (Auto) Cancelled Eos % (Auto) Cancelled Baso % (Auto) Cancelled Absolute Neuts (auto) Cancelled Absolute Lymphs (auto) Cancelled Seg Neuts % (Manual) 75 Band Neutrophils % 1 Lymphocytes % (Manual) 21 Monocytes % (Manual) 3 Absolute Neutrophils 15.35 H Absolute Lymphocytes 4.24 Platelet Estimate Dec RBC Morphology Reviewed this admiss Haptoglobin Fibrinogen 185 L D-Dimer Quant (PE/DVT) 714 H Sodium Potassium Chloride Carbon Dioxide Anion Gap BUN Creatinine Estimated GFR (MDRD) Glucose POC Capillary Glucose Calculated Osmolality Calcium Lactate Dehydrogenase Vitamin B12 Serum Folate Blood Type Antibody Screen KORY, Poly Interpret Crossmatch 04/18/16 11:56 WBC RBC Hgb Hct MCV MCH MCHC RDW Plt Count MPV Neut % (Auto) Lymph % (Auto) [place] % (Auto) Eos % (Auto) Baso % (Auto) Absolute Neuts (auto) Absolute Lymphs (auto) Seg Neuts % (Manual) Band Neutrophils % Lymphocytes % (Manual) Monocytes % (Manual) Absolute Neutrophils Absolute Lymphocytes Platelet Estimate RBC Morphology Haptoglobin Fibrinogen D-Dimer Quant (PE/DVT) Sodium Potassium Chloride Carbon Dioxide Anion Gap BUN Creatinine Estimated GFR (MDRD) Glucose POC Capillary Glucose 156 H Calculated Osmolality Calcium Lactate Dehydrogenase Vitamin B12 Serum Folate Blood Type Antibody Screen KORY, Poly Interpret Crossmatch - Assessment (1) Acute post-hemorrhagic anemia Acute D62 - ACUTE POSTHEMORRHAGIC ANEMIA Comment/Plan: Up to 8.1 today. Continue IVIG, IV steroids and monitor. Recheck later today. Continue to transfuse as needed. Appreciate hematology evaluation. Remains acutely and critically ill and will be monitored in the ICU. (2) Chronic ITP (idiopathic thrombocytopenia) Acute D69.3 - IMMUNE THROMBOCYTOPENIC PURPURA Comment/Plan: Slightly better at 15,000 today. Continue IV steroids and IVIG. Transfuse platelets as needed. Appreciate hematology evaluation (3) ARF (acute renal failure) Acute N17.9 - ACUTE KIDNEY FAILURE, UNSPECIFIED Qualifiers: Acute renal failure type: unspecified Qualified Code(s): N17.9 - Acute kidney failure, unspecified Comment/Plan: Creatinine improved to 1.5. Continue to monitor (4) Severe thrombocytopenia Acute D69.6 - THROMBOCYTOPENIA, UNSPECIFIED Comment/Plan: As above under ITP (5) GI bleed Acute K92.2 - GASTROINTESTINAL HEMORRHAGE, UNSPECIFIED Qualifiers: GI bleed type/associated pathology: anorectal hemorrhage Qualified Code(s) : K62.5 - Hemorrhage of anus and rectum Comment/Plan: Denies any GI bleeding this morning (6) Dehydration Acute E86.0 - DEHYDRATION Comment/Plan: IV fluids and monitor (7) Hyperglycemia Acute R73.9 - HYPERGLYCEMIA, UNSPECIFIED Comment/Plan: Accu-Cheks and sliding scale insulin Case Care Discussed with: Patient, Consultants, Nursing Staff, Physical Therapy , Resource Management, Respiratory Therapy, Cloth Laminating Supervisor Total Time: 45 minutes Critical Care: Yes
[2016-04-18 17:09] LABS: MPV 11.6 fL (7.4-10.4)
[2016-04-19] MEDS: ALPRAZOLAM 0.5 MG TAB PO SCH ×3 (05:03→20:51)
[2016-04-19] MEDS: SODIUM CHLORIDE 0.9% 3 ML FLUSH FLUSH SCH ×2 (05:04→17:14)
[2016-04-19] MEDS: NS 1,000 ML IV SCH ×3 (05:59→20:52)
[2016-04-19] MEDS: REGULAR INSULIN 100 UNITS/ML - 3 ML VIAL SQ SCH ×6 (06:01→20:51)
[2016-04-19 06:12] LABS: AUTOMATED BASOPHIL 0.1 % (0-2); AUTOMATED LYMPH 25.9 % (17-44); AUTOMATED MONOCYTE 6.7 % (3-10); AUTOMATED NEUTROPHIL 67.3 % (45-76)
[2016-04-19 06:30] LABS: BLOOD UREA NITROGEN 57 MG/DL (9-20); CALCULATED OSMOLALITY 284 MOs/Kg (270-290); CHLORIDE 116 mEq/L (98-107); GLUCOSE 82 MG/DL (70-99); SODIUM LEVEL 140 mEq/L (137-146)
[2016-04-19] MEDS: SERTRALINE HCL 100 MG TAB PO SCH (08:06)
[2016-04-19] MEDS: DEXAMETHASONE IV SCH (08:14)
[2016-04-19] MEDS: NS IV SCH (08:14)
--- NOTE | 2016-04-19 09:53 | GENMEDPROG ---
Chief Complaint: blood in stool 3 days ago Notes Reviewed: Yes Events from last night noted and discussed with Clinical Staff Current Medication List: Reviewed Currently: Reports: SOB. Denies: Cough, Wheezing, MORRIS, Nausea and Vomiting, Chest Pain DVT Prophylaxis: No (Patient has severe thrombocytopenia is actively bleeding with significant peripheral ecchymoses. Do not feel he is safe for SCDs or chemo prophylaxis) - Physical Examination Vital Signs and I&O: Last Vital Signs Temp 97.9 F 04/19/16 07:00 Pulse 72 04/19/16 08:00 Resp 18 04/19/16 06:02 BP 113/61 04/19/16 08:00 Pulse Ox 95 04/19/16 08:00 Oxygen Pulse Oxygen Saturation 95 O2 Device Room Air Oxygen Flow Rate Fraction of Inspired Oxygen ( FIO2) Intake & Output 04/16/16 04/17/16 04/18/16 04/19/16 23:59 23:59 23:59 23:59 Intake Total 3654 6026 5830 907 Output Total 1650 1950 1550 100 Balance 2004 4076 4280 807 Patient's weight 88.621 kg 88.621 kg 90.582 kg 88.859 kg General: Alert, Oriented x3, Cooperative, Mild distress. negative: Well appearing (Acutely ill-appearing) HEENT: Normal, PERRLA, EOMI, Anicteric Sclera Neck: Non-tender, Full range of motion, Normal Trachea alignment, Normal inspection. negative: JVD Lymphatics: Normal. negative: Adenopathy Respiratory: Normal - CTA (BBS clear to auscultation without adventitious sounds ). negative: Rales, Rhonchi, Wheezes Cardiovascular: Regular rate and rhythm, No Gallops,Rubs/Murmurs GI: Normal bowel sounds, Soft, Non tender, No hepatospenomegaly Extremities/Musculoskeletal: Normal pulses. negative: Tenderness, Swelling, Edema Skin: Ecchymosis Present Neurological: Normal speech, Strength at 5/5 X4 ext, Normal tone, Cranial nerves 3-12 NL Psych/Mental Status: Appropriate, Normal Affect, Cooperative, Anxious Lab/DI/Studies Reviewed: 04/19/16 05:55 04/19/16 05:55 Laboratory Results - last 24 hr 04/16/16 04/18/16 04/18/16 11:35 10:00 10:00 WBC 20.2 H RBC 2.72 L Hgb 8.1 L D Hct 24.1 L MCV 89 MCH 29.8 MCHC 33.7 RDW 15.9 H Plt Count 15 L* MPV 10.6 H Neut % (Auto) Cancelled Lymph % (Auto) Cancelled [place] % (Auto) Cancelled Eos % (Auto) Cancelled Baso % (Auto) Cancelled Absolute Neuts (auto) Cancelled Absolute Lymphs (auto) Cancelled Seg Neuts % (Manual) 75 Band Neutrophils % 1 Lymphocytes % (Manual) 21 Monocytes % (Manual) 3 Absolute Neutrophils 15.35 H Absolute Lymphocytes 4.24 Platelet Estimate Dec RBC Morphology Reviewed this admiss Fibrinogen D-Dimer Quant (PE/DVT) Sodium 142 Potassium 5.0 Chloride 117 H Carbon Dioxide 17 L Anion Gap 13 BUN 65 H Creatinine 1.50 H Estimated GFR (MDRD) 46 L Glucose 101 H POC Capillary Glucose Calculated Osmolality 292 H Calcium 8.3 L Blood Type A NEGATIVE Antibody Screen Negative KORY, Poly Interpret Negative Crossmatch See Detail 04/18/16 04/18/16 04/18/16 10:00 10:00 11:56 WBC RBC Hgb Hct MCV MCH MCHC RDW Plt Count MPV Neut % (Auto) Lymph % (Auto) [place] % (Auto) Eos % (Auto) Baso % (Auto) Absolute Neuts (auto) Absolute Lymphs (auto) Seg Neuts % (Manual) Band Neutrophils % Lymphocytes % (Manual) Monocytes % (Manual) Absolute Neutrophils Absolute Lymphocytes Platelet Estimate RBC Morphology Fibrinogen 185 L D-Dimer Quant (PE/DVT) 714 H Sodium Potassium Chloride Carbon Dioxide Anion Gap BUN Creatinine Estimated GFR (MDRD) Glucose POC Capillary Glucose 156 H Calculated Osmolality Calcium Blood Type Antibody Screen KORY, Poly Interpret Crossmatch 04/18/16 04/18/16 04/18/16 16:55 17:16 20:00 WBC 16.3 H RBC 2.32 L Hgb 7.0 L D Hct 20.7 L MCV 89 MCH 30.1 MCHC 33.8 RDW 16.3 H Plt Count 10 L* MPV 11.6 H Neut % (Auto) Lymph % (Auto) [place] % (Auto) Eos % (Auto) Baso % (Auto) Absolute Neuts (auto) Absolute Lymphs (auto) Seg Neuts % (Manual) Band Neutrophils % Lymphocytes % (Manual) Monocytes % (Manual) Absolute Neutrophils Absolute Lymphocytes Platelet Estimate RBC Morphology Fibrinogen D-Dimer Quant (PE/DVT) Sodium Potassium Chloride Carbon Dioxide Anion Gap BUN Creatinine Estimated GFR (MDRD) Glucose POC Capillary Glucose 324 H 363 H Calculated Osmolality Calcium Blood Type Antibody Screen KORY, Poly Interpret Crossmatch 04/19/16 04/19/16 04/19/16 05:19 05:55 05:55 WBC 16.1 H RBC 2.69 L Hgb 8.0 L D Hct 23.7 L MCV 88 MCH 29.8 MCHC 33.9 RDW 15.9 H Plt Count 15 L* MPV 10.0 Neut % (Auto) 67.3 Lymph % (Auto) 25.9 [place] % (Auto) 6.7 Eos % (Auto) 0.0 Baso % (Auto) 0.1 Absolute Neuts (auto) 10.79 H Absolute Lymphs (auto) 4.03 Seg Neuts % (Manual) Band Neutrophils % Lymphocytes % (Manual) Monocytes % (Manual) Absolute Neutrophils Absolute Lymphocytes Platelet Estimate RBC Morphology Fibrinogen D-Dimer Quant (PE/DVT) Sodium 140 Potassium 4.6 Chloride 116 H Carbon Dioxide 17 L Anion Gap 12 BUN 57 H Creatinine 1.40 H Estimated GFR (MDRD) 49 L Glucose 82 POC Capillary Glucose 80 Calculated Osmolality 284 Calcium 8.0 L Blood Type Antibody Screen KORY, Poly Interpret Crossmatch - Assessment (1) Acute post-hemorrhagic anemia Acute D62 - ACUTE POSTHEMORRHAGIC ANEMIA Comment/Plan: Up to 8 today. Continue IVIG, IV steroids and monitor. Recheck later today. Continue to transfuse as needed. Appreciate hematology evaluation. Remains acutely and critically ill and will be monitored in the ICU. Patient to get Rituxan tomorrow. (2) GI bleed Acute K92.2 - GASTROINTESTINAL HEMORRHAGE, UNSPECIFIED Qualifiers: GI bleed type/associated pathology: melena Qualified Code(s): K92.1 - Melena Comment/Plan: Hemoglobin had dropped to 7 and required multiple transfusions to 8 today. (3) ARF (acute renal failure) Acute N17.9 - ACUTE KIDNEY FAILURE, UNSPECIFIED Qualifiers: Acute renal failure type: unspecified Qualified Code(s): N17.9 - Acute kidney failure, unspecified Comment/Plan: Creatinine improved to 1.4. Continue to monitor. (4) Non-insulin dependent diabetes mellitus treated with insulin Chronic E11.9 - TYPE 2 DIABETES MELLITUS WITHOUT COMPLICATIONS; Z79.4 - LONG-TERM (CURRENT) USE OF INSULIN Comment/Plan: Decadron is allowing sugars to be elevated and increase insulin coverage as well as reinstitute oral medications. (5) Severe thrombocytopenia Acute D69.6 - THROMBOCYTOPENIA, UNSPECIFIED Comment/Plan: As above under ITP Additional Notes: Due to the presence of and / or the risk of deterioration, my attendance to this patient required critical care time, including assessment/reassessment, documentation, ordering and interpreting ancillary studies, discussion with staff and consultants,patient and family, and excludes time spent on separately billable procedures. This individual is critically ill and in danger of dying. Case Care Discussed with: Patient, Consultants (Dr. Brown), Family, Nursing Staff, Resource Management Education/Counseling Given To: Patient, Family Member (Son) Education/Counseling Given Regarding: Diagnosis Total Time: Critical care time spent 43 minutes Critical Care: Yes Code: 291
[2016-04-19] MEDS: GLIPIZIDE 5 MG TAB PO SCH ×2 (12:45→17:13)
[2016-04-19] MEDS: CYANOCOBALAMIN (Vitamin B-12) 500 MCG TABLET PO SCH (12:45)
[2016-04-19] MEDS: MetFORMIN 1000 MG IMMED REL TAB PO SCH ×2 (12:46→17:13)
[2016-04-19] MEDS: PANTOPRAZOLE 40 MG VIAL IV SCH ×2 (12:46→20:51)
[2016-04-19 13:53] LABS: MPV 11.1 fL (7.4-10.4)
[2016-04-19 19:57] LABS: MPV 10.6 fL (7.4-10.4)
[2016-04-19] MEDS: PRAVASTATIN 40 MG TABLET PO SCH (20:51)
[2016-04-20] MEDS: ZOLPIDEM TARTRATE 5 MG TAB PO PRN ×2 (01:52→21:57)
[2016-04-20] MEDS: CHLORHEXIDINE (HIBICLENS) 4 OZ BOTTLE TOP SCH ×2 (01:55→21:52)
[2016-04-20] MEDS: ALPRAZOLAM 0.5 MG TAB PO SCH ×3 (05:21→21:57)
[2016-04-20] MEDS: SODIUM CHLORIDE 0.9% 3 ML FLUSH FLUSH SCH ×2 (05:21→18:13)
[2016-04-20] MEDS: NS 1,000 ML IV SCH ×3 (06:00→23:17)
[2016-04-20 06:03] LABS: MPV 11.2 fL (7.4-10.4)
[2016-04-20 06:40] LABS: BLOOD UREA NITROGEN 43 MG/DL (9-20); CALCIUM 7.7 MG/DL (8.4-10.2); CALCULATED OSMOLALITY 278 MOs/Kg (270-290); CHLORIDE 116 mEq/L (98-107); GLUCOSE 66 MG/DL (70-99); SODIUM LEVEL 140 mEq/L (137-146)
[2016-04-20 07:10] LABS: SEG NEUTROPHIL 60 % (45-76)
[2016-04-20 07:39] LABS: HEPATITIS B CORE AB (IGG/IGM) Positive (Negative)
[2016-04-20] MEDS: REGULAR INSULIN 100 UNITS/ML - 3 ML VIAL SQ SCH ×6 (07:44→21:57)
[2016-04-20] MEDS: SERTRALINE HCL 100 MG TAB PO SCH (08:50)
[2016-04-20] MEDS ORDERED: DIPHENHYDRAMINE 50 MG/ML VIAL ONE (08:54)
[2016-04-20] MEDS ORDERED: ACETAMINOPHEN 325 MG/TAB TABLET PO ONE (08:55)
[2016-04-20] MEDS: GLIPIZIDE 5 MG TAB PO SCH ×2 (08:57→18:09)
[2016-04-20] MEDS: MetFORMIN 1000 MG IMMED REL TAB PO SCH ×2 (08:57→18:09)
[2016-04-20] MEDS ORDERED: NS IV ONE (09:30)
[2016-04-20] MEDS ORDERED: RITUXIMAB IV ONE (09:30)
[2016-04-20] MEDS: NS IV SCH (09:41)
[2016-04-20] MEDS: DEXAMETHASONE IV SCH (09:41)
[2016-04-20 10:18] LABS: HEPATITIS B SURFACE AB(IMMUNE) Reactive (.)
[2016-04-20] MEDS: CYANOCOBALAMIN (Vitamin B-12) 500 MCG TABLET PO SCH (11:59)
[2016-04-20] MEDS: PANTOPRAZOLE 40 MG VIAL IV SCH ×2 (12:00→21:57)
--- NOTE | 2016-04-20 19:26 | GENMEDPROG ---
Chief Complaint: no sob no chest pain Notes Reviewed: Yes Events from last night noted and discussed with Clinical Staff Current Medication List: Reviewed Currently: Reports: SOB. Denies: Cough, Wheezing, MORRIS, Nausea and Vomiting, Chest Pain DVT Prophylaxis: No (Patient has severe thrombocytopenia is actively bleeding with significant peripheral ecchymoses. Do not feel he is safe for SCDs or chemo prophylaxis) - Physical Examination Vital Signs and I&O: Last Vital Signs Temp 97.7 F 04/20/16 14:00 Pulse 75 04/20/16 18:25 Resp 22 04/20/16 14:00 BP 128/69 04/20/16 18:00 Pulse Ox 97 04/20/16 18:00 Oxygen Pulse Oxygen Saturation 97 O2 Device Room Air Oxygen Flow Rate Fraction of Inspired Oxygen ( FIO2) Intake & Output 04/17/16 04/18/16 04/19/16 04/20/16 23:59 23:59 23:59 23:59 Intake Total 6026 5830 3962 4410 Output Total 1950 1550 1150 1200 Balance 4076 4280 2812 3210 Patient's weight 88.621 kg 90.582 kg 88.859 kg 88.859 kg General: Alert, Oriented x3, Cooperative, Mild distress. negative: Well appearing (Acutely ill-appearing) HEENT: Normal, PERRLA, EOMI, Anicteric Sclera Neck: Non-tender, Full range of motion, Normal Trachea alignment, Normal inspection. negative: JVD Lymphatics: Normal. negative: Adenopathy Respiratory: Normal - CTA (BBS clear to auscultation without adventitious sounds ). negative: Rales, Rhonchi, Wheezes Cardiovascular: Regular rate and rhythm, No Gallops,Rubs/Murmurs GI: Normal bowel sounds, Soft, Non tender, No hepatospenomegaly Extremities/Musculoskeletal: Normal pulses. negative: Tenderness, Swelling, Edema Skin: Ecchymosis Present Neurological: Normal speech, Strength at 5/5 X4 ext, Normal tone, Cranial nerves 3-12 NL Psych/Mental Status: Appropriate, Normal Affect, Cooperative, Anxious Lab/DI/Studies Reviewed: 04/20/16 05:45 04/20/16 05:45 Laboratory Results - last 24 hr 04/19/16 04/19/16 04/19/16 13:39 19:30 20:49 WBC 14.9 H RBC 2.72 L Hgb 8.2 L Hct 24.2 L MCV 89 MCH 30.2 MCHC 34.0 RDW 16.3 H Plt Count 18 L* MPV 10.6 H Neut % (Auto) Lymph % (Auto) [place] % (Auto) Eos % (Auto) Baso % (Auto) Absolute Neuts (auto) Absolute Lymphs (auto) Seg Neuts % (Manual) Band Neutrophils % Lymphocytes % (Manual) Monocytes % (Manual) Absolute Neutrophils Absolute Lymphocytes Vacuolated Neuts Platelet Estimate RBC Morphology Sodium Potassium Chloride Carbon Dioxide Anion Gap BUN Creatinine Estimated GFR (MDRD) Glucose POC Capillary Glucose 158 H Calculated Osmolality Calcium Hep Bs Antigen Negative Hep Bs Antibody Reactive Hep B Core Total Ab Positive A Hep B Core IgM Ab Negative 04/20/16 04/20/16 04/20/16 05:30 05:45 05:45 WBC 17.5 H RBC 2.88 L Hgb 8.6 L Hct 25.6 L MCV 89 MCH 30.0 MCHC 33.7 RDW 16.7 H Plt Count 14 L* MPV 11.2 H Neut % (Auto) Cancelled Lymph % (Auto) Cancelled [place] % (Auto) Cancelled Eos % (Auto) Cancelled Baso % (Auto) Cancelled Absolute Neuts (auto) Cancelled Absolute Lymphs (auto) Cancelled Seg Neuts % (Manual) 60 Band Neutrophils % 1 Lymphocytes % (Manual) 31 Monocytes % (Manual) 8 Absolute Neutrophils 10.68 H Absolute Lymphocytes 5.43 H Vacuolated Neuts Few Platelet Estimate Dec RBC Morphology Reviewed this admiss Sodium 140 Potassium 4.7 Chloride 116 H Carbon Dioxide 17 L Anion Gap 12 BUN 43 H Creatinine 1.40 H Estimated GFR (MDRD) 49 L Glucose 66 L POC Capillary Glucose 64 L Calculated Osmolality 278 Calcium 7.7 L Hep Bs Antigen Hep Bs Antibody Hep B Core Total Ab Hep B Core IgM Ab 04/20/16 04/20/16 04/20/16 07:49 10:55 17:01 WBC RBC Hgb Hct MCV MCH MCHC RDW Plt Count MPV Neut % (Auto) Lymph % (Auto) [place] % (Auto) Eos % (Auto) Baso % (Auto) Absolute Neuts (auto) Absolute Lymphs (auto) Seg Neuts % (Manual) Band Neutrophils % Lymphocytes % (Manual) Monocytes % (Manual) Absolute Neutrophils Absolute Lymphocytes Vacuolated Neuts Platelet Estimate RBC Morphology Sodium Potassium Chloride Carbon Dioxide Anion Gap BUN Creatinine Estimated GFR (MDRD) Glucose POC Capillary Glucose 83 141 H 229 H Calculated Osmolality Calcium Hep Bs Antigen Hep Bs Antibody Hep B Core Total Ab Hep B Core IgM Ab - Assessment (1) Acute post-hemorrhagic anemia Acute D62 - ACUTE POSTHEMORRHAGIC ANEMIA Comment/Plan: Hemoglobin appears stable. HAS GOTTEN IVIG, IV steroids. Appreciate hematology evaluation. Transfer to medical bed. (2) GI bleed Acute K92.2 - GASTROINTESTINAL HEMORRHAGE, UNSPECIFIED Qualifiers: GI bleed type/associated pathology: melena Qualified Code(s): K92.1 - Melena Comment/Plan: Hemoglobin stable (3) ARF (acute renal failure) Acute N17.9 - ACUTE KIDNEY FAILURE, UNSPECIFIED Qualifiers: Acute renal failure type: unspecified Qualified Code(s): N17.9 - Acute kidney failure, unspecified Comment/Plan: Creatinine improved to 1.4. Continue to monitor. 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 (5) Severe thrombocytopenia Acute D69.6 - THROMBOCYTOPENIA, UNSPECIFIED Comment/Plan: Had Rituxan yesterday platelet count is 16,000 today. Case Care Discussed with: Patient, Nursing Staff, Resource Management Education/Counseling Given To: Patient Education/Counseling Given Regarding: Diagnosis Total Time: 39 min Critical Care: No Code: 16601 (12+)
[2016-04-20 21:37] LABS: MPV 10.8 fL (7.4-10.4)
[2016-04-20] MEDS: PRAVASTATIN 40 MG TABLET PO SCH (21:56)
[2016-04-21] MEDS: ALPRAZOLAM 0.5 MG TAB PO SCH ×3 (05:56→21:52)
[2016-04-21] MEDS: SODIUM CHLORIDE 0.9% 3 ML FLUSH FLUSH SCH ×2 (05:56→18:06)
[2016-04-21] MEDS: MetFORMIN 1000 MG IMMED REL TAB PO SCH ×2 (05:57→18:10)
[2016-04-21] MEDS: REGULAR INSULIN 100 UNITS/ML - 3 ML VIAL SQ SCH ×6 (05:57→20:34)
[2016-04-21] MEDS: GLIPIZIDE 5 MG TAB PO SCH ×2 (05:57→18:10)
[2016-04-21 06:52] LABS: AUTOMATED BASOPHIL 0.2 % (0-2); AUTOMATED EOSINOPHIL 0.2 % (0-5); AUTOMATED LYMPH 22.3 % (17-44); AUTOMATED MONOCYTE 6.8 % (3-10); AUTOMATED NEUTROPHIL 70.5 % (45-76); MPV 11.3 fL (7.4-10.4)
[2016-04-21 07:03] LABS: BLOOD UREA NITROGEN 32 MG/DL (9-20); CALCIUM 7.4 MG/DL (8.4-10.2); CALCULATED OSMOLALITY 273 MOs/Kg (270-290); CHLORIDE 115 mEq/L (98-107); GLUCOSE 61 MG/DL (70-99); SODIUM LEVEL 139 mEq/L (137-146)
[2016-04-21] MEDS: NS 1,000 ML IV SCH ×2 (07:20→15:46)
[2016-04-21 07:33] VITALS: BMI 28.9
--- NOTE | 2016-04-21 09:00 | GENMEDPROG ---
Chief Complaint: Dark stool dizzy when I stand of fast Notes Reviewed: Yes Events from last night noted and discussed with Clinical Staff Current Medication List: Reviewed Currently: Reports: SOB. Denies: Cough, Wheezing, MORRIS, Nausea and Vomiting, Chest Pain DVT Prophylaxis: No (Patient has severe thrombocytopenia is actively bleeding with significant peripheral ecchymoses. Do not feel he is safe for SCDs or chemo prophylaxis) - Physical Examination Vital Signs and I&O: Last Vital Signs Temp 98.4 F 04/21/16 07:00 Pulse 80 04/21/16 08:00 Resp 20 04/21/16 07:00 BP 138/66 04/21/16 08:00 Pulse Ox 93 04/21/16 08:00 Oxygen Pulse Oxygen Saturation 93 O2 Device Room Air Oxygen Flow Rate Fraction of Inspired Oxygen ( FIO2) Intake & Output 04/18/16 04/19/16 04/20/16 04/21/16 23:59 23:59 23:59 23:59 Intake Total 5830 3962 4410 2017 Output Total 1550 1150 1800 850 Balance 4280 2812 2610 1167 Patient's weight 90.582 kg 88.859 kg 88.859 kg 96.706 kg General: Alert, Oriented x3, Cooperative, Mild distress. negative: Well appearing (Acutely ill-appearing) HEENT: Normal, PERRLA, EOMI, Anicteric Sclera Neck: Non-tender, Full range of motion, Normal Trachea alignment, Normal inspection. negative: JVD Lymphatics: Normal. negative: Adenopathy Respiratory: Normal - CTA (BBS clear to auscultation without adventitious sounds ). negative: Rales, Rhonchi, Wheezes Cardiovascular: Regular rate and rhythm, No Gallops,Rubs/Murmurs GI: Normal bowel sounds, Soft, Non tender, No hepatospenomegaly Extremities/Musculoskeletal: Normal pulses. negative: Tenderness, Swelling, Edema Skin: Ecchymosis Present Neurological: Normal speech, Strength at 5/5 X4 ext, Normal tone, Cranial nerves 3-12 NL Psych/Mental Status: Appropriate, Normal Affect, Cooperative, Anxious Lab/DI/Studies Reviewed: 04/21/16 05:35 04/21/16 05:35 Laboratory Results - last 24 hr 04/19/16 04/20/16 04/20/16 13:39 10:55 17:01 WBC RBC Hgb Hct MCV MCH MCHC RDW Plt Count MPV Neut % (Auto) Lymph % (Auto) [place] % (Auto) Eos % (Auto) Baso % (Auto) Absolute Neuts (auto) Absolute Lymphs (auto) Sodium Potassium Chloride Carbon Dioxide Anion Gap BUN Creatinine Estimated GFR (MDRD) Glucose POC Capillary Glucose 141 H 229 H Calculated Osmolality Calcium Hep Bs Antigen Negative Hep Bs Antibody Reactive Hep B Core Total Ab Positive A Hep B Core IgM Ab Negative 04/20/16 04/20/16 04/21/16 21:09 21:20 05:35 WBC 10.7 RBC 2.89 L Hgb 8.7 L Hct 25.9 L MCV 90 MCH 30.3 MCHC 33.8 RDW 16.8 H Plt Count 17 L* MPV 10.8 H Neut % (Auto) Lymph % (Auto) [place] % (Auto) Eos % (Auto) Baso % (Auto) Absolute Neuts (auto) Absolute Lymphs (auto) Sodium 139 Potassium 4.7 Chloride 115 H Carbon Dioxide 17 L Anion Gap 12 BUN 32 H Creatinine 1.20 Estimated GFR (MDRD) 59 L Glucose 61 L POC Capillary Glucose 286 H Calculated Osmolality 273 Calcium 7.4 L Hep Bs Antigen Hep Bs Antibody Hep B Core Total Ab Hep B Core IgM Ab 04/21/16 05:35 WBC 12.3 H RBC 2.87 L Hgb 8.6 L Hct 25.1 L MCV 88 MCH 29.9 MCHC 34.1 RDW 16.4 H Plt Count 16 L* MPV 11.3 H Neut % (Auto) 70.5 Lymph % (Auto) 22.3 [place] % (Auto) 6.8 Eos % (Auto) 0.2 Baso % (Auto) 0.2 Absolute Neuts (auto) 8.61 H Absolute Lymphs (auto) 2.71 Sodium Potassium Chloride Carbon Dioxide Anion Gap BUN Creatinine Estimated GFR (MDRD) Glucose POC Capillary Glucose Calculated Osmolality Calcium Hep Bs Antigen Hep Bs Antibody Hep B Core Total Ab Hep B Core IgM Ab - Assessment (1) Acute post-hemorrhagic anemia Acute D62 - ACUTE POSTHEMORRHAGIC ANEMIA Comment/Plan: Hemoglobin appears stable. HAS GOTTEN IVIG, IV steroids. Appreciate hematology evaluation. Transfer to medical bed. (2) GI bleed Acute K92.2 - GASTROINTESTINAL HEMORRHAGE, UNSPECIFIED Qualifiers: GI bleed type/associated pathology: melena Qualified Code(s): K92.1 - Melena Comment/Plan: Hemoglobin stable (3) ARF (acute renal failure) Acute N17.9 - ACUTE KIDNEY FAILURE, UNSPECIFIED Qualifiers: Acute renal failure type: unspecified Qualified Code(s): N17.9 - Acute kidney failure, unspecified Comment/Plan: Creatinine improved to 1.4. Continue to monitor. (4) Non-insulin dependent diabetes mellitus treated with insulin Chronic E11.9 - TYPE 2 DIABETES MELLITUS WITHOUT COMPLICATIONS; Z79.4 - ASSISTED (CURRENT) USE OF INSULIN Comment/Plan: Decadron is allowing sugars to be elevated and getting insulin coverage as well as oral medications. (5) Severe thrombocytopenia Acute D69.6 - THROMBOCYTOPENIA, UNSPECIFIED Comment/Plan: Had Rituxan 2016 platelet count is 16,000 today. Case Care Discussed with: Patient, Nursing Staff, Resource Management Education/Counseling Given To: Patient Education/Counseling Given Regarding: Diagnosis Total Time: 36 minutes Critical Care: No Code: 39717 (12+)
[2016-04-21] MEDS: DEXAMETHASONE 4 MG TAB PO SCH (09:30)
[2016-04-21] MEDS: SERTRALINE HCL 100 MG TAB PO SCH (09:31)
--- NOTE | 2016-04-21 09:40 | PMOFOLLOWU ---
Medical Oncology Follow-Up Date of Service:: 04/20/16 Medical Oncology Follow-Up Note: HISTORY OF PRESENT ILLNESS: The patient is doing well this morning. He denies having any active bleeding issues despite his low platelet count. The nursing staff reports he still has black,tarry stools. PHYSICAL EXAMINATION: Vital signs include a temperature 98.9, pulse 69, respirations 20, blood pressure 130/71 GENERAL: The patient is alert and oriented x3, in no acute distress. HEENT EXAM: Clear oropharynx with no exudate or lesions appreciated. LUNG EXAM: Clear to auscultation bilaterally. CARDIAC EXAM: Regular rate and rhythm. No murmurs, rubs, or gallops. ABDOMINAL EXAM: Soft, nontender and nondistended; no hepatosplenomegaly. EXTREMITY EXAM: No clubbing, cyanosis, or edema. LYMPH NODE SURVEY: No palpable cervical, supraclavicular, axillary, or inguinal lymphadenopathy. NEUROLOGIC EXAM: Cranial nerves II-XII and cerebellar functions are grossly intact. SKIN EXAM: Old areas of purpura petechiae or seen over his skin. LABORATORY DATA: Laboratory Tests 04/16/16 04/16/16 04/18/16 11:35 11:35 10:00 WBC Hgb Hct Plt Count PT 10.8 INR 1.1 APTT 18.8 L Fibrinogen D-Dimer Quant (PE/DVT) 714 H Vitamin B12 208 L 04/18/16 04/20/16 10:00 05:45 WBC 17.5 H Hgb 8.6 L Hct 25.6 L Plt Count 14 L* PT INR APTT Fibrinogen 185 L D-Dimer Quant (PE/DVT) Vitamin B12 ASSESSMENT AND PLAN: A 75-year-old gentleman who is in the ICU for severe ITP and anemia. Thus far, the patient has received 4 days of Decadron 40 mg IV and 2 days of IVIG at 1 gram/kilogram body weight. He has also received multiple units of platelets. Despite these interventions, this gentleman's platelet count has remained below 20. Because of this, he will receive Rituxan 375 milligrams/meter squared IV this morning with the hopes this intervention will abrogate his immune system's destruction of his platelets. Although I do not appreciate any findings on his peripheral smear to suggest acute promyelocytic leukemia, he does have a low fibrinogen level. Because of this and his low counts, I will send his peripheral blood to FISH for the translocation t(15;17) . If positive, this test would be pathognomonic for acute promyelocytic leukemia. This gentleman was also found to be vitamin B12 deficient. Usually I would give daily intramuscular injections of vitamin B12. However, due to his severe thrombocytopenia, oral vitamin B12 will be given while in the hospital. I will continue to follow his platelet count on a daily basis to see if the infusion of Rituxan is leading to an improvement in his platelet count. The patient understands all the plans discussed at the bedside this morning and is in agreement with them.
[2016-04-21] MEDS: PANTOPRAZOLE 40 MG VIAL IV SCH (12:38)
[2016-04-21] MEDS: CYANOCOBALAMIN (Vitamin B-12) 500 MCG TABLET PO SCH (12:38)
[2016-04-21 20:17] LABS: MPV 12.5 fL (7.4-10.4)
[2016-04-21] MEDS: PRAVASTATIN 40 MG TABLET PO SCH (21:47)
[2016-04-21] MEDS: ZOLPIDEM TARTRATE 5 MG TAB PO PRN (21:52)
[2016-04-22] MEDS: NS 1,000 ML IV SCH ×2 (00:08→06:07)
[2016-04-22] MEDS: PANTOPRAZOLE 40 MG VIAL IV SCH (00:09)
[2016-04-22] MEDS: ALPRAZOLAM 0.5 MG TAB PO SCH (06:04)
[2016-04-22] MEDS: SODIUM CHLORIDE 0.9% 3 ML FLUSH FLUSH SCH (06:04)
[2016-04-22] MEDS: MetFORMIN 1000 MG IMMED REL TAB PO SCH (06:05)
[2016-04-22] MEDS: GLIPIZIDE 5 MG TAB PO SCH (06:06)
[2016-04-22] MEDS: REGULAR INSULIN 100 UNITS/ML - 3 ML VIAL SQ SCH ×3 (06:23→12:03)
[2016-04-22 06:28] VITALS: BP 134/71; PULSE 77; TEMP 98
[2016-04-22] MEDS: SERTRALINE HCL 100 MG TAB PO SCH (08:46)
[2016-04-22] MEDS: DEXAMETHASONE 4 MG TAB PO SCH (08:46)
[2016-04-22 08:49] LABS: AUTOMATED EOSINOPHIL 0.2 % (0-5); AUTOMATED LYMPH 18.9 % (17-44)
[2016-04-22 08:51] LABS: AUTOMATED MONOCYTE 5.4 % (3-10); AUTOMATED NEUTROPHIL 75.5 % (45-76); MPV 11.5 fL (7.4-10.4)
[2016-04-22 09:06] LABS: BLOOD UREA NITROGEN 24 MG/DL (9-20); CALCIUM 7.4 MG/DL (8.4-10.2); CALCULATED OSMOLALITY 268 MOs/Kg (270-290); CHLORIDE 114 mEq/L (98-107); GLUCOSE 91 MG/DL (70-99); SODIUM LEVEL 137 mEq/L (137-146)
--- NOTE | 2016-04-22 09:25 | PCM.DCS92 ---
[id number] Present on Admission: Yes Comment: Hemoglobin appears stable. HAS GOTTEN IVIG, IV steroids. Appreciate hematology evaluation. Transfer to medical bed. (2) GI bleed Acute K92.2 - GASTROINTESTINAL HEMORRHAGE, UNSPECIFIED Present on Admission: Yes melena K92.1 - Melena Comment: Hemoglobin stable (3) ARF (acute renal failure) Acute N17.9 - ACUTE KIDNEY FAILURE, UNSPECIFIED Present on Admission: Yes unspecified N17.9 - Acute kidney failure, unspecified Comment: Creatinine improved to 1.4. Continue to monitor. 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 (5) Severe thrombocytopenia Acute D69.6 - THROMBOCYTOPENIA, UNSPECIFIED Present on Admission: Yes Comment: Had Rituxan 04/20/2016 platelet count is 29,000 today. Discharge Disposition: Home Discharge Condition: Improved Cognitive Discharge Status: Unimpaired Fuctional Discharge Status: Walker Assistance Physician Follow up/Referrals: Cameron Pearson MD [Primary Care Provider] - One Week Elvira Brown MD [Staff Physician] - 04/24/16 (cbc on saturday) Home Medications / New Prescriptions: New Cyanocobalamin (Vitamin B-12) [Vitamin B-12 (cyanocobalamin)] 1,000 mcg PO DAILY@1200 #100 tablet Continue Pravastatin Sodium 80 mg PO HS Lisinopril 40 mg PO HS Glipizide 5 mg PO BID Insulin Regular, Human [Humulin R] 12 unit SQ BID Alprazolam 0.5 mg PO TID Sertraline HCl [Zoloft] 100 mg PO DAILY MetFORMIN (Immediate Release) [GLUCOPHAGE Immed Release] 1,000 mg PO BID Discharge Home Medication List Pravastatin Sodium 80 mg PO HS 04/29/13 [History Confirmed 04/16/16 Last Taken 04/15/16] Alprazolam 0.5 mg PO TID 05/16/15 [History Confirmed 04/16/16 Last Taken ] Glipizide 5 mg PO BID 05/16/15 [History Confirmed 04/16/16 Last Taken 04/15/16] Insulin Regular, Human [Humulin R] 12 unit SQ BID 05/16/15 [History Confirmed Last Taken 04/15/16] Lisinopril 40 mg PO HS 05/16/15 [History Confirmed 04/16/16 Last Taken 04/15/16] MetFORMIN (Immediate Release) [GLUCOPHAGE Immed Release] 1,000 mg PO BID [History Confirmed 04/16/16 Last Taken 04/15/16] Sertraline HCl [Zoloft] 100 mg PO DAILY 04/16/16 [History Confirmed 04/16/16 Last Taken 04/15/16] Cyanocobalamin (Vitamin B-12) [Vitamin B-12 (cyanocobalamin)] 1,000 mcg PO DAILY @1200 #100 tablet 04/22/16 [Rx Last Taken Unknown] 04/22/16 08:07 04/22/16 08:07 Laboratory Results - last 24 hr 04/21/16 04/21/16 04/21/16 05:36 05:50 06:05 WBC RBC Hgb Hct MCV MCH MCHC RDW Plt Count MPV Neut % (Auto) Lymph % (Auto) [place] % (Auto) Eos % (Auto) Baso % (Auto) Absolute Neuts (auto) Absolute Lymphs (auto) Sodium Potassium Chloride Carbon Dioxide Anion Gap BUN Creatinine Estimated GFR (MDRD) Glucose POC Capillary Glucose 65 L 68 L 90 Calculated Osmolality Calcium 04/21/16 04/21/16 04/21/16 10:52 16:05 20:00 WBC 10.9 H RBC 2.94 L Hgb 8.9 L Hct 26.5 L MCV 90 MCH 30.1 MCHC 33.4 RDW 16.7 H Plt Count 25 L* MPV 12.5 H Neut % (Auto) Lymph % (Auto) [place] % (Auto) Eos % (Auto) Baso % (Auto) Absolute Neuts (auto) Absolute Lymphs (auto) Sodium Potassium Chloride Carbon Dioxide Anion Gap BUN Creatinine Estimated GFR (MDRD) Glucose POC Capillary Glucose 105 H 258 H Calculated Osmolality Calcium 04/21/16 04/22/16 04/22/16 20:07 06:16 06:17 WBC RBC Hgb Hct MCV MCH MCHC RDW Plt Count MPV Neut % (Auto) Lymph % (Auto) [place] % (Auto) Eos % (Auto) Baso % (Auto) Absolute Neuts (auto) Absolute Lymphs (auto) Sodium Potassium Chloride Carbon Dioxide Anion Gap BUN Creatinine Estimated GFR (MDRD) Glucose POC Capillary Glucose 301 H 64 L 59 L Calculated Osmolality Calcium 04/22/16 04/22/16 04/22/16 06:39 06:43 08:07 WBC RBC Hgb Hct MCV MCH MCHC RDW Plt Count MPV Neut % (Auto) Lymph % (Auto) [place] % (Auto) Eos % (Auto) Baso % (Auto) Absolute Neuts (auto) Absolute Lymphs (auto) Sodium 137 Potassium 4.2 Chloride 114 H Carbon Dioxide 17 L Anion Gap 10 BUN 24 H Creatinine 1.10 Estimated GFR (MDRD) > 60 Glucose 91 POC Capillary Glucose 68 L 77 Calculated Osmolality 268 L Calcium 7.4 L 04/22/16 08:07 WBC 12.9 H RBC 3.11 L Hgb 9.1 L Hct 27.6 L MCV 89 MCH 29.3 MCHC 33.0 RDW 16.8 H Plt Count 29 L* MPV 11.5 H Neut % (Auto) 75.5 Lymph % (Auto) 18.9 [place] % (Auto) 5.4 Eos % (Auto) 0.2 Baso % (Auto) 0.0 Absolute Neuts (auto) 9.68 H Absolute Lymphs (auto) 2.32 Sodium Potassium Chloride Carbon Dioxide Anion Gap BUN Creatinine Estimated GFR (MDRD) Glucose POC Capillary Glucose Calculated Osmolality Calcium O2 Device: Room Air Additional Instructions: If the hospital does not call you with follow-up on Saturday, call office for date and time. Diet at Discharge: As Tolerated Activity: As Tolerated Discontinue use of:: Alcohol, All Types of Tobacco - DC Summary Notes HPI/Notes: Mr. Barrow is a 75-year-old white male with a history of ITP who presents to the emergency room with complaint of severe weakness, GI bleeding, and near- syncope. In the emergency room he was found to be severely thrombocytopenic with a platelet count of less than 3. He was also severely anemic with a hemoglobin of 6.8. He complains of dizziness and lightheadedness. I discussed his case with Dr. Brown with Hematology-Oncology. We have gone ahead and started him on IVIG and high-dose IV Decadron. We will transfuse him packed red blood cells and platelets. He will be admitted to the intensive care unit for further evaluation and management. Hospital Course Note:: Discharge summary on patient named MARJORIE BARROW admitted to [facility] on 04/16/16 by Margarito Snyder MD. Date of discharge is 04/22/2016. He was admitted to the intensive care unit with severe anemia hemoglobin 6.8 and platelet count was less than 3000. Transfusion was given with 8 units of packed red blood cells and 6 units of platelets over the next [address] Brown was consulted and recommended the administration of IVIG and Decadron. Lacking response to this therapy he then recommended the use of Rituxan. After receiving that, the platelet count started to climb to 29,000 today and patient was felt ready for discharge home today. Follow up with Dr. Brown in the next 2 days. Patient did have hepatitis B core antibody that was positive. cc: Dr. Lili Brown Total Time: 39 min Code: 64284 (>30min.) - Physical Exam Vital Signs: Last Vital Signs Temp 98.0 F 04/22/16 06:27 Pulse 77 04/22/16 06:27 Resp 18 04/22/16 06:27 BP 134/71 04/22/16 06:27 Pulse Ox 96 04/22/16 06:27 Oxygen Pulse Oxygen Saturation 96 O2 Device Room Air Oxygen Flow Rate Fraction of Inspired Oxygen ( FIO2) Constitutional: Alert (Awake), Distress. negative: Well appearing (Acutely ill- appearing) Oriented to: Time, Person, Place - HEENT Head: Normal ( normocephalic) Eye: Normal (PERRL, EOMI, Sclera white) Oropharynx: Normal, Other (INTRAORAL PETECHIAE) ENT EAC: Normal TMJ: Normal Nose: No Symptoms Reported (septum midline) - Respiratory/Cardiovascular Respiratory: Normal - CTA (BBS clear to auscultation without adventitious sounds ). negative: Rales, Rhonchi, Wheezes Cardiovascular: Normal (RRR , Normal S1, S2. No murmurs, rubs, or gallops. PMI non-displaced. Carotids: no carotid bruits. No bradycardia or tachycardia. DP pulses 2+ bilaterally.) - GI Auscultation: Normal (NABS) Palpation: Normal (Soft,No rebound or guarding, non distended) Tenderness: Non tender Rectal Exam: Heme positive stool - Musculoskeletal Back: Ecchymosis Extremities: Other (ECCHYMOSIS AND PETECHIAE). negative: Calf Tenderness, Edema , Pedal Edema - Integumentary Skin: Other (ECCHYMOSIS AND PETECHIAE) Lymphatics: Normal. negative: Adenopathy - Neurologic Memory Impaired: Normal Motor Function: Normal (Motor 5/5 throughout.Normal tone, Pulses 2+ No cyanosis or edema, FROM) Cranial Nerve: Normal (CN II-XII intact sensation, strength 5/5) Cerebellar: Normal Mood Description: Normal Thought: Coherent Perception: Normal
== END 2016-04-22 13:11 | disposition home or self-care (01) | DRG 813 ==
LOC: ED 11:05 → ICU 13:47 → MPS3 04-21 10:05
PROVIDERS: ADMIT Hospitalist; ATTEND Internal Medicine
PROC: 30233R1 Transfusion of Nonautologous Platelets into Peripheral Vein, Percutaneous Approach (ICD-10-PCS; principal; 2016-04-16)
PROC: 30233N1 Transfusion of Nonautologous Red Blood Cells into Peripheral Vein, Percutaneous Approach (ICD-10-PCS; 2016-04-16)
DX: D69.3 Immune thrombocytopenic purpura (principal); N17.9 Acute kidney failure, unspecified; E11.65 Type 2 diabetes mellitus with hyperglycemia; D62 Acute posthemorrhagic anemia; K92.1 Melena; B19.10 Unspecified viral hepatitis B without hepatic coma; E86.0 Dehydration; R55 Syncope and collapse; Z79.4 Long term (current) use of insulin; I10 Essential (primary) hypertension; E78.00 Pure hypercholesterolemia, unspecified; Z79.84 Long term (current) use of oral hypoglycemic drugs; Z79.899 Other long term (current) drug therapy; E53.8 Deficiency of other specified B group vitamins
CPT/HCPCS: 36415; 36430; 71010; 80048; 80053; 81001; 81315; 82607; 82746; 82962; 83010; 83615; 84484; 85007; 85025; 85027; 85379; 85384; 85610; 85730; 86704; 86706; 86850; 86880; 86900; 86901; 86920; 87340; 87641; 88271; 88275; 93005; 96361; 96372; 96374; 96375; 99223; 99233; 99285; J1100; J1200; J1561; J2405; J3490; J7030; J7050; J9310; P9016; P9035; S0164